=== PATIENT | male | born 1965 | race Caucasian/White ===

== ENCOUNTER 2022-05-16 01:31 | Day surgery (SDC) | payer MEDICARE, SELFPAY ==
[2022-05-03 10:21] VITALS: BMI 28.5
--- NOTE | 2022-05-14 14:02 | PM.HPGS ---
History of Present Illness History of Present Illness Consent: Risks, benefits, and alternatives have been discussed and questions answered. Patient agrees to proceed with procedure. Chief complaint: family hx colon ca Narrative: Amilcar Maharaj is a 57 year old male Who was referred for colon cancer screening. He does have a family history of colon cancer. His last colonoscopy was 7 years ago Review of Systems Review of Systems: All systems reviewed & are unremarkable except as noted in HPI and below PMFSH Social History Social History Smoking status: Never smoker Alcohol intake: never Substance use: never Substance use type: does not use Living arrangements: with family Additional living arrangements comments: mother is POA, she is in her 80s, brother Loc brings them food and helps with transportation Spiritual care concerns: No Meds Home Medications and Allergies Home Medications Medication Instructions Recorded Confirmed Type atorvastatin 10 mg tablet 10 mg PO DAILY 05/03/22 05/03/22 History fluoxetine 40 mg capsule 40 mg PO DAILY 05/03/22 05/03/22 History quetiapine 400 mg tablet 400 mg PO DAILY 05/03/22 05/03/22 History Allergies Allergy/AdvReac Type Severity Reaction Status Date / Time vancomycin Allergy Unknown Verified 05/16/22 09:45 Exam Const: General: alert Orientation/consciousness: patient oriented x3 Resp: Auscultation: clear to auscultation bilaterally Cardio: Rhythm: regular rhythm GI: GI Palp: Yes Soft to palpation and No Tenderness to palpation present (GI) Neuro: General: patient oriented x3 Results Results Additional studies: Colonoscopy with possible biopsy or polypectomy or cautery or injection of substances.
[2022-05-16 09:49] VITALS: BP 126/84; PULSE 88; RESP 18; TEMP 36.4; O2SAT 99
[2022-05-16] MEDS: LACTATED RINGERS 1,000 ML 150 ML IV CONT (09:51)
--- NOTE | 2022-05-16 10:56 | P.PNAN_ITS ---
Anes - Initial Pre Proc Eval Procedure: Operation Date: 05/16/22 11:30 Proposed Procedures p Screening Colonoscopy - Pako Sandoval MD Date/Time: 05/16/22 10:56 Surgeon: Pako Sandoval MD Pre Op Diagnosis: family hx colon ca Patient Data Age: 57 Gender: M Height: 1.73 m Weight: 83.6 kg Last Vital Signs Temp 97.5 F L 05/16/22 09:49 Pulse 88 05/16/22 09:49 Resp 18 05/16/22 09:49 BP 126/84 05/16/22 09:49 Pulse Ox 99 05/16/22 09:49 O2 Del Method Room Air 05/16/22 09:49 Allergies Allergy/AdvReac Type Severity Reaction Status Date / Time vancomycin Allergy Unknown Verified 05/16/22 09:45 Home Medications Medication Instructions Recorded Confirmed Type atorvastatin 10 mg tablet 10 mg PO DAILY 05/03/22 05/03/22 History fluoxetine 40 mg capsule 40 mg PO DAILY 05/03/22 05/03/22 History quetiapine 400 mg tablet 400 mg PO DAILY 05/03/22 05/03/22 History Patient hx anesthesia problems: none Family hx anesthesia problems: none Results Review: All pre-operative results and documents have been reviewed as part of the pre- operative evaluation. [facility] Social History Social History Smoking status: Never smoker Alcohol intake: never Substance use: never Substance use type: does not use Living arrangements: with family Additional living arrangements comments: mother is POA, she is in her 80s, brother Loc brings them food and helps with transportation Spiritual care concerns: No Anes - Eval Final PreProcedure Day of Procedure 05/16/22 10:56 Patient weight: normal Heart: regular rate and rhythm Lungs: clear to auscultation Airway: Mallampati scale class III Neurological: alert and oriented Last oral intake: >/= 8 hours ASA classification: II Emergent: no Anesthetic plan: proceed Anesthesia type and monitoring: general GIVS and standard monitoring Results Review: All pre-operative results and documents have been reviewed as part of the pre- operative evaluation. Informed Consent: The patient's anesthetic plan and its attendant risks and benefits were discussed with the patient/family/POA. Questions were solicited and answers provided to the satisfaction of the patient/family/POA.
[2022-05-16 11:06] VITALS: BP 109/71; PULSE 77; RESP 17; O2SAT 97
[2022-05-16 11:16] VITALS: BP 111/76; PULSE 74; RESP 17; O2SAT 98
[2022-05-16 11:26] VITALS: BP 129/84; PULSE 67; RESP 15; O2SAT 100
== END 2022-05-16 11:50 | disposition home or self-care (01) ==
PROVIDERS: PCP Internal Medicine Infectious Disease; Visit Provider Internal Medicine Gastroenterology
PROC: 0DJD8ZZ Inspection of Lower Intestinal Tract, Via Natural or Artificial Opening Endoscopic (ICD-10-PCS; CPT 45378; principal; 2022-05-16 11:30)
DX: Z12.11 Encounter for screening for malignant neoplasm of colon (principal); Z80.0 Family history of malignant neoplasm of digestive organs
CPT/HCPCS: G0105; J2704; J7120